=== PATIENT | male | born 1950 | race Caucasian/White ===

== ENCOUNTER 2024-12-23 13:50 | Inpatient (IN) | payer MEDICARE, OTHER, SELFPAY ==
[2024-12-22 19:52] VITALS: BP 159/74
[2024-12-22 20:09] LABS: % Basophils 0.6 % (0-2); % Eosinophils 1.7 % (0-6); % Immature Granulocytes 0.4 % (0-0.5); % Lymphocytes 9.4 % (20.5-51.1); % Neutrophils 79.9 % (42.2-75.2); Absolute Basophils 0.1 10^3/uL (0-0.2); Absolute Eosinophils 0.1 10^3/uL (0-0.7); Absolute Lymphocytes 0.8 10^3/uL (1.2-3.4); Absolute Monocytes 0.7 10^3/uL (0.1-0.6); Absolute Neutrophils 6.7 10^3/uL (1.4-6.5); Hematocrit 43.6 % (39.0-52.0); Hemoglobin 14.7 g/dL (13.0-18.0); Mean Corp Hgb Conc. 33.7 g/dL (33.0-37.0); Mean Corpuscular Hgb 30.5 pg (27.0-31.0); Mean Corpuscular Volume 90.5 fL (80.0-94.0); Mean Platelet Volume 9.6 fL (7.4-10.4); Nucleated Red Blood Cells % 0 % (-); Platelet Count 260 10^3/uL (130-400); Red Blood Cell Count 4.82 10^6/uL (4.70-6.10); Red Cell Dist. Width 13.7 % (11.5-14.5); White Blood Cell Count 8.4 10^3/uL (4.8-10.8)
[2024-12-22 20:32] LABS: ALT (SGPT) 19 U/L (0-50); AST (SGOT) 21 U/L (17-59); Albumin 4.3 g/dl (3.5-5.0); Alkaline Phosphatase 59 U/L (38-126); Blood Urea Nitrogen 31 mg/dl (9-20); Calcium 9.2 mg/dl (8.4-10.2); Carbon Dioxide 17 mmol/L (22-30); Chloride 106 mmol/L (98-107); Glucose 293 mg/dl (70-99); Potassium 4.2 mmol/L (3.5-5.1); Sodium 137 mmol/L (135-145); Total Bilirubin 0.6 mg/dl (0.2-1.3); Total Protein 7.2 g/dl (6.3-8.2); eGFR > 60.00
[2024-12-22 20:44] LABS: Lipase 2148 U/L (23-300)
--- NOTE | 2024-12-22 22:43 | ED.GENMED ---
History of Present Illness
General
Chief Complaint: Abdominal Pain
Source: patient
Time Seen by Provider: 12/22/24 22:32
History of Present Illness
History of Present Illness:
74-year-old male presents to the emergency room complaining of nausea, vomiting, diarrhea and abdominal pain. Symptoms began yesterday. He states he has vomited numerous times. He has been unable to keep anything down. The abdominal pain is
described as significant and diffuse. He states he feels bloated. Patient denies any previous abdominal operations. He denies smoking. He admits to drinking 2 high balls a day. No recreational drugs. He did not take any vggd-fum-uhcpbxq
medications for his symptoms.
Past History
Past History
ED Past Medical History: CAD, Cancer (Prostate with mets to brain and tailbone), COPD, GERD, HTN, Hypercholesterolemia, IDDM, Psychiatric (Anxiety, Depression) and Other ( urethral stricture, anxiety, depression, Diabetic neuropathy, sleep apnea
uses CPAP. Chronic bronchitis, Pancreatitis)
ED Past Surgical History: Cardiac (Stents X 2, Watchman procedure, ) and Orthopedic (Bilateral hips, Left knee ACL, Achilies tendon repair, )
Social History
Tobacco: Former smoker
Alcohol: Daily (Vodka, 2-3 glasses)
Drug: None
Personal:
Living: with family
Employment: Retired
Family History
Family History: Other
Phy Exam
Physical Exam
Physical Exam:
General: Awake, Alert, Oriented X3. Appears uncomfortable. High BMI
Vitals: unremarkable
Head: Atraumatic
Eyes: Pupils equal, EOMI
Throat: Airway intact, no exudates, dry mucosa
Neck: Trachea midline
Lungs: Clear and equal b/l
Heart: Regular rate, no murmurs
Abd: Soft, protuberant abdomen, mild tenderness diffusely with point of maximal tenderness in the epigastrium, No pulsatile mass
Neuro: Nonfocal
Skin: Warm, dry, no rash
Extremities: pulses equal b/l, no edema
Course
Orders/Labs/Results
Orders:
Orders
12/22/24 19:59
Complete Blood Count/With Diff Urgent
12/22/24 20:00
Comprehensive Metabolic Panel Urgent
Lipase Urgent
12/22/24 22:40
HYDROmorphone [Dilaudid] 0.5 mg IV NOW STA
Ondansetron Injectable [Zofran] 4 mg IV NOW STA
12/22/24 22:41
Electrocardiogram (*1) Stat
Reason for Study: Abdominal Pain
CT Abd/Pel (IV only)-DH only Urgent
Comment:
Reason For Exam: abd pain, elevated lipase
EKG- Treatment ONCE
12/22/24 22:42
0.9% Sodium Chloride 500 ml [Nss] 500 ml IV BOLUS
12/22/24 22:45
0.9% Sodium Chloride 1000 ml [Nss] 1,000 ml IV 125 mls/hr
12/23/24 01:29
Admit/Transfer Patient As Directed
Co-Sign Provider:
Level of Care: Observation services
Assign to:: Medical/Surgical
Physician / Group: Sebas
Diagnosis: Acute pancreatitis
PRN Pain Medication Management As Directed
May give lesser potent ordered pain med per pt: Yes
preference::
Protocol:: Medication orders for pain may be administered in a
manner that supports deferring to patient preference
when the pt is:
- Requesting an ordered lesser potent pain medication.
Least to most potent pain medications are defined
as: acetaminophen < NSAID < tramadol < opioids
(morphine, oxycodone, hydromorphone).
- Requesting a lesser dose of the same medication IF
ORDERED.
- Requesting a less intrusive route of administration
if both routes are prescribed by the provider (PO <
IV).
12/23/24 01:31
Code Status As Directed
Resuscitation Status: Full Code
12/23/24 02:08
Acetaminophen [Tylenol] 650 mg PO Q4HPRN PRN
Albuterol [ProAIR HFA INHALER] 2 puff INH R Q6HPRN PRN SOB
Bisacodyl [Dulcolax] 10 mg RECTAL A30HEMP PRN
HYDROmorphone [Dilaudid] 0.5 mg IV Q4HPRN PRN
Ondansetron Injectable [Zofran] 4 mg IV Q6HPRN PRN
Oxycodone [Roxicodone] 5 mg PO Q4HPRN PRN
12/23/24 02:08
Activity As Directed
Activity Level: With Assistance
Bedside Glucose Monitoring As Directed
Frequency: Q6H
Vital Signs As Directed
Frequency: Per unit guidelines
Pulse Ox/spot Check [RESP] Routine
Quantity: 1
DX Deep Vein Thrombosis Video Routine
12/23/24 Breakfast
NPO
Allow oral meds: Yes
Allow clear liquids: Sips of Clears
NPO with Ice Chips: Yes
Basic Metabolic Panel IN AM
Complete Blood Count/No Diff IN AM
LFT [Aqjbb-Fiox-Ntiqpds] IN AM
NT-proBNP IN AM
Triglycerides IN AM
Insulin Aspart Corrective Mod [Novolog Flexpen-Moderate Resistance] See Protocol SC Q6
12/23/24 08:00
Budesonide/Formoterol 80/4.5 [Symbicort 80/4.5 Mcg Inhaler] 2 puff INH R BID
Doxazosin Mesylate [Cardura] 2 mg PO DAILY
Gabapentin [Neurontin] 900 mg PO TID
HydrALAZINE [Apresoline] 25 mg PO QID
Pantoprazole [Protonix] 40 mg PO DAILY
Sacubitril 24/Valsartan 26 [Entresto 24 mg/26 mg] 1 tab PO BID
azelastine 1 spray NASAL BID
icosapent ethyl [Vascepa] See Dose Instructions PO BID
12/23/24 12:00
Fluoxetine HCl [Prozac] 40 mg PO NOON
Loratadine [Claritin] 10 mg PO NOON
12/23/24 18:00
Enoxaparin Sodium [Lovenox] 40 mg SC QPM
12/23/24 22:00
Melatonin 3 mg PO HS
Cpap [RESP] HS
Patient to use own unit?: No
Set Pressure (cm H2O): 12
Abnormal Lab Results
12/22/24 12/22/24
19:59 20:00
Absolute Neuts (auto) 6.7 H 10^3/uL
(1.4-6.5)
Absolute Lymphs (auto) 0.8 L 10^3/uL
(1.2-3.4)
Absolute Monos (auto) 0.7 H 10^3/uL
(0.1-0.6)
Neutrophils % 79.9 H %
(42.2-75.2)
Lymphocytes % 9.4 L %
(20.5-51.1)
Carbon Dioxide 17 L mmol/L
(22-30)
BUN 31 H mg/dl
(9-20)
Glucose 293 H mg/dl
(70-99)
Lipase 2148 H* U/L
(23-300)
12/22/24 19:59
12/22/24 20:00
Vital Signs
Initial and Last Documented VS:
Initial Vital Signs
Temp Pulse Resp BP Pulse Ox
97.8 F 65 18 159/74 95
12/22/24 19:52 12/22/24 19:52 12/22/24 19:52 12/22/24 19:52 12/22/24 19:52
Last Documented Vital Signs
Temp Pulse Resp BP Pulse Ox
97.6 F 74 20 158/108 94
12/23/24 03:08 12/23/24 03:08 12/23/24 03:08 12/23/24 03:08 12/23/24 03:08
MDM/Problems Addressed
Differential Diagnosis Includes:
Gastritis, pancreatitis, peptic ulcer disease, cholecystitis
MDM/Problems Addressed:
Patient presents with nausea vomiting and abdominal pain. Labs show an elevated lipase. CT abdomen pelvis obtained which confirms the presence of pancreatitis based on edema around the pancreas. No other complicating findings. Patient will
require hospitalization for IV fluids, bowel rest, observation for decompensation.
*Radiology
Radiology exam reviewed: preliminary read by ED provider (Vision radiology report noted, peripancreatic edema)
*Pulse Oximetry
Patient hypoxic: no
*EKG
Heart Rate: 76
Rate: normal
Rhythm: sinus
Interval: first degree heart block
QRS Pattern: left bundle branch block
Ischemia: non-specific ST changes
*Critical Care Note
Total Time (30-74mins, 75-104mins- exclusive of procedures): Not Applicable
ED Attending Note
-
Portions of this chart may have been created with voice recognition software.� Occasional wrong word or��sound alike� substitutions may have occurred due to the inherent limitations of voice recognition software.
Discharge Plan
Departure
Patient Disposition: Admit
Date of Disposition: 12/23/24
Time of Disposition: 00:07
Presentation/result/management discussed w/ accepting MD/DO: Hospitalist
Condition: Fair
Discharge Problem:
Pancreatitis, acute
Interventions
Interventions:
*Risk Screen - Suicide Last Done: 12/23/24 02:52
*General Assessment Last Done: 12/22/24 19:52
*Neglect/Abuse Screening Last Done: 12/22/24 19:52
*ED- Fall Risk Assessment Last Done: 12/22/24 23:19
*ED COVID-19 Vaccine History Last Done: 12/23/24 02:52
*Nursing Disposition Last Done: 12/23/24 02:41
OA-Ivsyyc-Bgfkqzgupu Assessment Last Done: 12/22/24 23:19
Discharge Date and Time
Discharge Date/Time: 12/23/24 02:42
[2024-12-22] MEDS: ZOFRAN 4 MG IV (23:15)
[2024-12-22] MEDS: DILAUDID 0.5 MG IV (23:15)
[2024-12-22] MEDS: NSS 500 IV (23:16)
[2024-12-23] VITALS (7 sets, daily range): BP systolic 145–183; BP diastolic 59–108; PULSE 89; BMI 44.9
--- NOTE | 2024-12-23 01:06 | HPS.HSE ---
Family Physician
-
Family Physician: Dillon Sibley
Chief Complaint
-
Abdominal pain
History of Present Illness
This is a 74-year-old male with past medical history significant for insulin-dependent diabetes, hypertension, hyperlipidemia, congestive heart failure, obesity presented to the emergency department with acute episode of nausea vomiting diarrhea and
abdominal pain that began yesterday.
Had numerous episodes of vomiting that was nonbloody and nonbilious. He is unable to keep anything down. Reports epigastric abdominal pain radiating to the back.
Patient denies any history of biliary disease. He does report history of pancreatitis and states that he has had elevated lipids in the past associated with his pancreatitis. He does drink regularly and states he drinks 1-1/2 shots of liquor per
night.
Patient reports that over the last 2 days he has not been able to inject his long-acting insulin regularly and feels that this may be related to his elevated lipase levels. He has not been checking his blood sugars at home either. His blood sugar
is elevated here.
Denies history of gallstones.
In the emergency department he was afebrile, blood pressure was 148/88 with a pulse of 86 satting 90% on room air.
CBC was unremarkable. Electrolytes were normal, BUN/creatinine were normal. Glucose elevated at 290.
LFTs were normal. Lipase was elevated over 1999.
ECG shows 1st degree AV block rate of 76 with nonspecific widening of the QRS.
CT of the abdomen pelvis showing mild peripancreatic stranding, no pseudocyst, no fluid collection. Normal gallbladder and appendix without choledocholithiasis or acute cholecystitis. Otherwise normal intra-abdominal study.
Medical History
Past Medical History
Past Medical History: Reports Arrhythmia (Proximal atrial fibrillation status post Watchman), CAD (Status post stents x 2), Cancer (History of prostate cancer), CHF, COPD (Not on home O2), GERD, Hypercholesterolemia, IDDM, Psychiatric (Anxiety,
depression) and Other (Urethral stricture, BPH, EVELIA on CPAP)
Past Surgical History: Reports Other ( Cardiac (Stents X 2, Watchman procedure, ) and Orthopedic (Bilateral hips, Left knee ACL, Achilies tendon repair, ))
Social History
Tobacco: Non-smoker
Alcohol: Daily
Drug: None
Personal: Single
Family History
Family History: Not pertinent
Allergies / Home Medications
Allergies reflects when Allergies were last updated in [facility] [employer] [facility] [employer]
Home Medications with original date entered in [facility] [employer] [facility] [employer].
Allergy/Medication List:
Allergies
Allergy/AdvReac Type Severity Reaction Status Date / Time
azithromycin Allergy Rash Verified 07/04/23 20:40
[From Zithromax Z-Enoc]
duloxetine [From Cymbalta] Allergy weak memory Verified 07/04/23 20:40
Kkszgld-GMV-NnU Reductase Allergy muscle Verified 07/04/23 20:40
Inhibitor cramps
[Dekclse-Pwz-Zgk Reductase
Inhibitor]
Home Medications
aspirin 81 mg tablet,delayed release 81 mg PO DAILY Blood clot prevention/tx 12/06/15
calcium carb 333 mg-vit D3 133 unit-mag ox 133 mg-zinc oxide 5 mg tab (Gerry Mag Zinc Plus D3) 1 tab PO HS Supplement 12/06/15
fenofibrate 160 mg tablet 160 mg PO DAILY High cholesterol 12/06/15
insulin aspart U-100 100 unit/mL (3 mL) subcutaneous pen (Novolog FlexPen U-100 Insulin aspart) 0 units SC MEALS Diabetes 06/22/17
turmeric root extract 500 mg capsule 500 mg PO BID Supplement 06/22/17
insulin degludec 100 unit/mL subcutaneous solution (Tresiba U-100 Insulin) 76 unit SQ DAILY Diabetes 03/22/19
omeprazole 40 mg capsule,delayed release 40 mg PO DAILY Gastrointestinal issue 03/22/19
ascorbic acid (vitamin C) 500 mg tablet (Vitamin C) 500 mg PO DAILY Supplement 04/02/19
cholecalciferol (vitamin D3) 25 mcg (1,000 unit) tablet 1,000 units PO DAILY Supplement 04/02/19
evolocumab 140 mg/mL subcutaneous syringe (Repatha Syringe) 140 mg SQ .[id number] High cholesterol 04/02/19
lisinopril 20 mg tablet 10 mg PO DAILY Blood pressure 04/02/19
zaleplon 10 mg capsule (Sonata) 10 mg PO HS Sleep 10/10/19
Acetal L Carnitine 1 tab PO DAILY cognition 06/01/20
alpha lipoic acid 100 mg capsule 100 mg PO DAILY dm nerves and pain 06/01/20
azelastine 137 mcg (0.1 %) nasal spray aerosol 1 spray intranasal BID allergies 06/01/20
celecoxib 200 mg capsule 200 mg PO DAILYPRN PRN KNEE pains 06/01/20
dupilumab 300 mg/2 mL subcutaneous pen injector (Dupixent) 2 ml SQ .[id number] Lung/breathing issues 06/01/20
melatonin 3 mg tablet (Melatin) 3 mg PO HS Sleep 06/01/20
fluoxetine 40 mg capsule (Prozac) 40 mg PO DAILY Mental Health/Anxiety 07/21/20
albuterol sulfate 90 mcg/actuation aerosol inhaler 2 puff inhalation R Q6HPRN PRN SOB 01/04/22
fluticasone fur. 100 mcg-umeclid 62.5 mcg-vilant 25 mcg inhalat.powder (Trelegy Ellipta) 1 puff IH R DAILY Lung/breathing issues 01/04/22
gabapentin 300 mg capsule 600 mg PO DAILY Neurological Condition 01/04/22
multivitamin with folic acid 400 mcg tablet (Tab-A-Jacqueline) 1 tab PO DAILY Supplement 01/04/22
zolpidem 12.5 mg tablet,extended release,multiphase 12.5 mg PO HS Sleep 01/04/22
empagliflozin 10 mg tablet (Jardiance) 10 mg PO DAILY 05/24/22
fexofenadine 180 mg tablet 180 mg PO DAILY 05/24/22
hydralazine 100 mg tablet 100 mg PO TID 05/24/22
icosapent ethyl 1 gram capsule (Vascepa) 1 g PO QID 05/24/22
doxazosin 1 mg tablet (Cardura) 1 mg PO DAILY 11/29/22
furosemide 40 mg tablet 40 mg PO DAILY Fluid retention/Swelling #0 tabs 11/29/22
omega-3 acid ethyl esters 1 gram capsule (Lovaza) 2 cap PO BID 11/29/22
Review of Systems
-
Constitutional: Reports No Symptoms
EENT: Reports No Symptoms
Respiratory: Reports No Symptoms
Cardiac: Reports No Symptoms
Abdomen/GI: Reports Abdominal Pain, Nausea, Vomiting and Diarrhea
: Reports No Symptoms
Musculoskeletal: Reports No Symptoms
Skin: Reports No Symptoms
Neurological: Reports No Symptoms
Endocrine: Reports No Symptoms
Hematologic/Lymphatic: Reports No Symptoms
Psych: Reports No Symptoms
Physical Exam
Vital Signs
Vital Signs
Temp Pulse Resp BP Pulse Ox
98.7 F 86 22 148/88 98
12/23/24 01:02 12/23/24 01:02 12/23/24 01:02 12/23/24 01:02 12/23/24 01:02
Physical Exam
General: Well Developed, Well Nourished, No Apparent Distress and Morbidly Obese
HEENT: NormoCephalic, Moist mucous membranes and Atraumatic
Respiratory: Clear
Cardiac: S1/S2 and Regular Rhythm; No Murmur or Rub
GI: Soft, Non Tender, Non Distended and Normal Bowel Sounds; No Organomegaly
Rectal: Deferred by Provider
Musculoskeletal: No Clubbing, No Cyanosis and No Edema
Skin: No Rash
Neuro: Nonfocal/grossly intact
Hematologic/Lymphatic: No Lymphadenopathy
Psych: Calm
Laboratory Results
-
12/22/24 19:59
12/22/24 20:00
Laboratory Results
Total Bilirubin 0.6 mg/dl (0.2-1.3) 12/22/24 20:00
AST 21 U/L (17-59) 12/22/24 20:00
ALT 19 U/L (0-50) 12/22/24 20:00
Alkaline Phosphatase 59 U/L (38-126) 12/22/24 20:00
Lipase 2148 U/L (23-300) H* 12/22/24 20:00
Data Reviewed
-
CT Scan: Report Reviewed by me
Lab Data: Labs Reviewed by me
Old Records: Reviewed
Impression/Plan
-
IMPRESSION:
74-year-old with multiple medical comorbidities including insulin-dependent diabetes, morbid obesity, CAD, congestive heart failure, hyperlipidemia, presenting to the emergency department with abdominal pain nausea vomiting diarrhea. Found to have
elevated lipase, consistent with acute pancreatitis. Patient is a daily drinker, reports that last drink was about 4 days ago. He is also on tirzepatide. CT scan consistent with pancreatitis but no gallstones and no other intra-abdominal process.
Risk factors and etiologies include alcohol use, GLP-1 agonist use, possibility of hypertriglyceridemia. Patient reported that in the past he is otherwise at least admitted to around 1300 when he was not taking insulin. He reports poor interval
insulin use over the last 4 days.
PLAN:
1. Acute pancreatitis -history of EtOH use, last use 4 days ago, GLP-1 agonist use, possibly triglyceridemia. No evidence of gallstone disease. Mild peripancreatic fat stranding, no fluid collection, no necrosis. Hemodynamically stable and labs
are otherwise normal.
-Admit to MedSurg
-N.p.o. for now
-Hold diuretics
-Pain control and antiemetics
-Given history of CHF with reduced EF will not flush with IV fluids but continue with gentle hydration with maintenance fluid while n.p.o.
-Trend LFTs, check triglyceride level
-Out of window for alcohol withdrawal but will monitor for now
2. CHF - Euvolemic appearing, compensated
- Holding furosemide
- Continue Entresto
- Continue hydralazine with hold parameters
3. Insulin-dependent diabetes
- N.p.o. for now
- Moderate sliding scale insulin
- Restart Lantus 30 am when tolerating p.o. with 10 3 times daily AC
4. COPD�not on home O2, no acute exacerbation
- Continue Trelegy, albuterol
5. EVELIA
- CPAP at bedtime
DVT prophylaxis�Lovenox subcu
CODE STATUS�full code
[2024-12-23] MEDS: NSS 1000 IV ×2 (02:19→09:33)
[2024-12-23] MEDS: DILAUDID 0.5 MG IV ×2 (02:33→08:17)
[2024-12-23] MEDS: ZOFRAN 4 MG IV (02:48)
[2024-12-23 02:54] LABS: Glucose - Point of Care 226 mg/dl (70-99)
[2024-12-23 06:03] LABS: Glucose - Point of Care 214 mg/dl (70-99)
[2024-12-23] MEDS: NOVOLOG FLEXPEN-MODERATE RESISTANCE 3 UNITS SC ×3 (06:04→17:32)
[2024-12-23 07:10] LABS: Hemoglobin 14.4 g/dL (13.0-18.0); Mean Corp Hgb Conc. 34.3 g/dL (33.0-37.0); Mean Corpuscular Hgb 31.1 pg (27.0-31.0); Mean Corpuscular Volume 90.7 fL (80.0-94.0); Mean Platelet Volume 9.4 fL (7.4-10.4); Platelet Count 247 10^3/uL (130-400); Red Blood Cell Count 4.63 10^6/uL (4.70-6.10); Red Cell Dist. Width 13.7 % (11.5-14.5); White Blood Cell Count 9.5 10^3/uL (4.8-10.8)
[2024-12-23 07:28] LABS: NT-proBNP 738 pg/ml
[2024-12-23 07:35] LABS: ALT (SGPT) 17 U/L (0-50); AST (SGOT) 20 U/L (17-59); Albumin 4.2 g/dl (3.5-5.0); Alkaline Phosphatase 49 U/L (38-126); Blood Urea Nitrogen 28 mg/dl (9-20); Carbon Dioxide 17 mmol/L (22-30); Chloride 110 mmol/L (98-107); Direct Bilirubin 0.1 mg/dl (0.0-0.4); Glucose 210 mg/dl (70-99); Potassium 4.6 mmol/L (3.5-5.1); Sodium 139 mmol/L (135-145); Total Bilirubin 0.7 mg/dl (0.2-1.3); Triglycerides 242 mg/dl (10-149); eGFR > 60.00
[2024-12-23] MEDS: SYMBICORT 80/4.5 MCG INHALER 2 PUFF INH ×2 (07:51→19:49)
[2024-12-23] MEDS: ENTRESTO 24 MG/26 MG 1 TAB PO ×2 (08:13→21:10)
[2024-12-23] MEDS: APRESOLINE 25 MG PO ×4 (08:13→21:10)
[2024-12-23] MEDS: NEURONTIN 900 MG PO ×3 (08:13→21:10)
[2024-12-23] MEDS: PROTONIX 40 MG PO (08:13)
[2024-12-23] MEDS: CARDURA 2 MG PO (09:33)
--- NOTE | 2024-12-23 11:16 | CM ---
Patient seen bedside, initial assessment completed. Patient is a 74-year-old male with past medical history significant for insulin-dependent diabetes, hypertension, hyperlipidemia, congestive heart failure, obesity presented to the emergency
department with acute episode of nausea vomiting diarrhea and abdominal pain.
Patient resides w/ spouse in a 2 story split home, 1 step to enter, 9 steps to second level to bedroom and bathroom. Independent w/ the use of a cane, independent w/ ADLs. Patient uses CPAP at night, supplier is [facility]. Denies SNF/HC hx,
multiple episodes of OP therapy.
Address, point of contact and insurance verified
PCP: Dillon Sibley
Pharmacy: [facility]
Patient is admitted as obs. GANT form verbally reviewed, copy provided, copy on chart
Plan: Anticipate home, no needs
[2024-12-23 12:14] LABS: Glucose - Point of Care 201 mg/dl (70-99)
[2024-12-23] MEDS: PROZAC 40 MG PO (12:34)
[2024-12-23] MEDS: CLARITIN 10 MG PO (12:35)
--- NOTE | 2024-12-23 13:52 | W.PN.HOSP.TC ---
Today's Communication/Plan
-
Clears
Stop IV fluids.
Continue insulin at reduced dose.
Check serum acetone
Assessment / Plan
Assessment / Plan
Impression:
Presentation with nausea, emesis, abdominal pain with radiation to the back.
Acute pancreatitis.
Increased anion gap metabolic acidosis, mild
Conditions prior to admission:
Chronic CHF preserved EF.
IDDM.
COPD.
Obstructive sleep apnea on CPAP at night.
Obesity with BMI of 44
Plan:
Acute pancreatitis.
Normal LFT.
CT scan with no evidence of acute cholecystitis or hepatobiliary abnormalities.
Reported daily alcohol use including up until 3 to 4 days prior to presentation
Also has been treated with GLP 1 agonist for about 6 months
Mild hypertriglyceridemia noted, although not in the range to close pancreatitis.
Resolved nausea and emesis. Abdominal pain improved since admission.
Stop IV fluids.
Advance to clear liquid diet.
IDDM.
Is mild increase given metabolic acidosis. Check beta hydroxybutyrate (suspect SGLT2 inhibitor related acidosis)
Clear liquid diet
Basal bolus protocol moderate dose.
Continue Lantus at reduced dose.
Serial Accu-Cheks
Chronic CHF preserved EF.
Hold furosemide for another 24 hours.
Continue Entresto
Continue hydralazine
Continue Cardura
COPD with no evidence of exacerbation
Not on O2 supplementation prior to admission
Continue trilogy and albuterol
Obstructive sleep apnea on CPAP at bedtime.
Anticipated Discharge: 24 - 48 hours
Subjective/Interval History
-
Date of Service: December 23, 2024
Objective Data
-
Labs:
Laboratory Results
12/23/24
06:52
WBC 9.5
Hgb 14.4
Hct 42.0
Plt Count 247
Sodium 139
Potassium 4.6
Chloride 110 H
Carbon Dioxide 17 L
BUN 28 H
Creatinine 1.0
Glucose 210 H
Calcium 9.0
Total Bilirubin 0.7
AST 20
ALT 17
Alkaline Phosphatase 49
Vital Signs:
Vital Signs
Temp Pulse Resp BP Pulse Ox
97.6 F 70 16 157/59 95
12/23/24 07:40 12/23/24 07:55 12/23/24 07:55 12/23/24 07:40 12/23/24 08:40
I&O
12/22/24 12/23/24 12/24/24
06:59 06:59 06:59
Intake Total 750 / 750
Output Total 700 / 700
Balance 50 / 50
Physical Exam
-
General: No Apparent Distress
HEENT: Normocephalic and Atraumatic
Respiratory: Negative Wheezes or Rales
Cardiac: Regular Rhythm and S1/S2
GI: Soft and Nontender
Neuro: AO x 3
Hematologic / Lymphatic: No Lymphadenopathy
Psych: Calm
[2024-12-23 16:43] LABS: Glucose - Point of Care 231 mg/dl (70-99)
[2024-12-23] MEDS: LOVENOX 40 MG SC (17:32)
[2024-12-23] MEDS: MELATONIN 3 MG PO (21:10)
[2024-12-23 21:32] LABS: Glucose - Point of Care 316 mg/dl (70-99)
[2024-12-23] MEDS: NOVOLOG FLEXPEN 6 UNITS SC (21:44)
[2024-12-24 03:18] LABS: Glucose - Point of Care 206 mg/dl (70-99)
[2024-12-24 05:47] VITALS: BMI 45.0
[2024-12-24 07:24] LABS: Glucose - Point of Care 220 mg/dl (70-99)
[2024-12-24] MEDS: NOVOLOG FLEXPEN-MODERATE RESISTANCE 3 UNITS SC (07:25)
[2024-12-24] MEDS: NEURONTIN 900 MG PO (07:26)
[2024-12-24] MEDS: PROTONIX 40 MG PO (07:26)
[2024-12-24] MEDS: CARDURA 2 MG PO (07:27)
[2024-12-24] MEDS: ENTRESTO 24 MG/26 MG 1 TAB PO (07:27)
[2024-12-24] MEDS: APRESOLINE 25 MG PO (07:27)
[2024-12-24] MEDS: SYMBICORT 80/4.5 MCG INHALER 2 PUFF INH (08:09)
[2024-12-24 08:16] LABS: ALT (SGPT) 14 U/L (0-50); AST (SGOT) 15 U/L (17-59); Albumin 3.9 g/dl (3.5-5.0); Alkaline Phosphatase 47 U/L (38-126); Blood Urea Nitrogen 25 mg/dl (9-20); Calcium 8.8 mg/dl (8.4-10.2); Carbon Dioxide 22 mmol/L (22-30); Chloride 103 mmol/L (98-107); Estimated Creatinine Clearance 84 ml/min; Glucose 204 mg/dl (70-99); Lipase 543 U/L (23-300); Potassium 4.6 mmol/L (3.5-5.1); Sodium 135 mmol/L (135-145); Total Bilirubin 0.8 mg/dl (0.2-1.3); Total Protein 6.5 g/dl (6.3-8.2); eGFR > 60.00
[2024-12-24 08:19] VITALS: BP 113/85
[2024-12-24 12:10] LABS: Glucose - Point of Care 213 mg/dl (70-99)
[2024-12-24] MEDS: NOVOLOG FLEXPEN-HIGH RESISTANCE 4 UNITS SC (12:22)
[2024-12-24] MEDS: CLARITIN 10 MG PO (12:25)
[2024-12-24] MEDS: PROZAC 40 MG PO (12:26)
[2024-12-24] MEDS: APRESOLINE PO (12:29)
[2024-12-24] MEDS: NOVOLOG FLEXPEN 4 UNITS SC (12:30)
--- NOTE | 2024-12-24 13:16 | W.DS.TRANS ---
DC Summary - [employer]
-
Discharge Instructions:
Discharge Diagnosis/Procedures Pancreatitis
Euglycemic DKA
Diet Diabetic, Carb Controlled
Instructions:
Stand-Alone Forms:
Changes to Home Medications: Yes
Discharge Medications:
DC Medications w/original date entered in [facility]
calcium 333 mg-vit D3 133 unit-magnesium 133 mg-zinc 5 mg tablet (Gerry Mag Zinc Plus D3) 1 tab PO HS Supplement 12/06/15
fenofibrate 160 mg tablet 135 mg PO DAILY High cholesterol 12/06/15
turmeric root extract 500 mg capsule 500 mg PO BID Supplement 06/22/17
omeprazole 40 mg capsule,delayed release 40 mg PO DAILY Gastrointestinal issue 03/22/19
ascorbic acid (vitamin C) 500 mg tablet (Vitamin C) 500 mg PO DAILY Supplement 04/02/19
cholecalciferol (vitamin D3) 25 mcg (1,000 unit) tablet 1,000 units PO DAILY Supplement 04/02/19
evolocumab 140 mg/mL subcutaneous syringe (Repatha Syringe) 140 mg SQ Q2W High cholesterol 04/02/19
Acetal L Carnitine 1 tab PO DAILY cognition 06/01/20
alpha lipoic acid 100 mg capsule 100 mg PO DAILY dm nerves and pain 06/01/20
azelastine 137 mcg (0.1 %) nasal spray 1 spray intranasal BID allergies 06/01/20
celecoxib 200 mg capsule 200 mg PO DAILYPRN PRN KNEE pains 06/01/20
dupilumab 300 mg/2 mL subcutaneous pen injector (Dupixent) 2 ml SQ Q2W Lung/breathing issues 06/01/20
fluoxetine 40 mg capsule (Prozac) 40 mg PO NOON Mental Health/Anxiety 07/21/20
albuterol sulfate 90 mcg/actuation aerosol inhaler 2 puff inhalation R Q6HPRN PRN SOB 01/04/22
gabapentin 300 mg capsule 900 mg PO TID Neurological Condition 01/04/22
multivitamin with folic acid 400 mcg tablet (Tab-A-Jacqueline) 1 tab PO DAILY Supplement 01/04/22
zolpidem 12.5 mg tablet,extended release,multiphase 12.5 mg PO HS Sleep 01/04/22
fexofenadine 180 mg tablet 180 mg PO NOON allergies 05/24/22
icosapent ethyl 1 gram capsule (Vascepa) 1 g PO BID High Cholesterol 05/24/22
doxazosin 2 mg tablet 2 mg PO DAILY Urinary Issue/BP 07/05/23
fluticasone fur. 100 mcg-umeclid 62.5 mcg-vilant 25 mcg inhalat.powder (Trelegy Ellipta) 1 inh inhalation R DAILY Lung/Breathing Issues 07/05/23
insulin degludec 200 unit/mL (3 mL) subcutaneous pen (Tresiba FlexTouch U-200 insulin) 60 unit SC DAILY diabetes 07/05/23
melatonin 3 mg tablet 3 mg PO HS sleep 07/05/23
zaleplon 10 mg capsule 10 mg PO HS sleep 07/05/23
furosemide 40 mg tablet (Lasix) 40 mg PO BID 12/23/24
hydralazine 25 mg tablet 25 mg PO QID 12/23/24
sacubitril 24 mg-valsartan 26 mg tablet (Entresto) 1 tab PO BID 12/23/24
insulin aspart U-100 100 unit/mL (3 mL) subcutaneous pen 4 unit (0.04 mL) SC AC #30 mL 12/24/24
Home Medication Changes
[place] and Luz stopped
AC aspart added
Pending Results: No
--- NOTE | 2024-12-24 13:37 | CM ---
sustainability project manager reviewed patient's chart and patient is for discharge to home today with spouse.
Plan; Home with spouse, spouse to transport.
[2024-12-24 14:03] VITALS: BP 101/66
== END 2024-12-24 14:17 | disposition home or self-care (01) | DRG 438 ==
LOC: 4 EAST ACU 13:50
PROVIDERS: Emergency Medicine; ADMITTING PHYSICIAN Internal Medicine; ATTENDING PHYSICIAN Internal Medicine; EMERGENCY PHYSICIAN Emergency Medicine; FAMILY PHYSICIAN Family Medicine
PROC: 5A09357 Assistance with Respiratory Ventilation, Less than 24 Consecutive Hours, Continuous Positive Airway Pressure (ICD-10-PCS; 2024-12-23)
DX: K85.90 Acute pancreatitis without necrosis or infection, unspecified (principal); E11.10 Type 2 diabetes mellitus with ketoacidosis without coma; Z68.41 Body mass index [BMI] 40.0-44.9, adult; I50.22 Chronic systolic (congestive) heart failure; E11.40 Type 2 diabetes mellitus with diabetic neuropathy, unspecified; Z79.4 Long term (current) use of insulin; J44.89 Other specified chronic obstructive pulmonary disease; G47.33 Obstructive sleep apnea (adult) (pediatric); E66.01 Morbid (severe) obesity due to excess calories; E78.00 Pure hypercholesterolemia, unspecified; E78.1 Pure hyperglyceridemia; I11.0 Hypertensive heart disease with heart failure; I44.0 Atrioventricular block, first degree; F41.9 Anxiety disorder, unspecified; F32.A Depression, unspecified; Z85.46 Personal history of malignant neoplasm of prostate; Z95.818 Presence of other cardiac implants and grafts; I25.10 Atherosclerotic heart disease of native coronary artery without angina pectoris; K21.9 Gastro-esophageal reflux disease without esophagitis; Z95.5 Presence of coronary angioplasty implant and graft; Z87.891 Personal history of nicotine dependence; Z88.1 Allergy status to other antibiotic agents; Z79.82 Long term (current) use of aspirin; I48.91 Unspecified atrial fibrillation
CPT/HCPCS: 74177; 80048; 80053; 80076; 82010; 82962; 83690; 83880; 84478; 85025; 85027; 93005; 94640; 94660; 99285; Q9967